=== PATIENT | male | born 1995 | race Caucasian/White ===

== ENCOUNTER 2017-03-12 10:26 | Emergency (ER) | payer BC, OTHER ==
[2017-03-12 10:57] VITALS: BP 131/69
--- NOTE | 2017-03-12 11:13 | UC ---
Respiratory Complaint HPI - HPI Summary HPI Summary: cough x 1 day + nasal congestion, sore throat , fever, chills body aches - History of Current Complaint Chief Complaint: UCRespiratory Stated Complaint: BLACKBURN/COUGH Time Seen by Provider: 03/12/17 11:08 Hx Obtained From: Patient Onset/Duration: Gradual Onset, Lasting Days - 1, Still Present Severity Initially: Moderate Severity Currently: Moderate Character: Cough: Nonproductive Aggravating Factors: Exertion Alleviating Factors: Nothing Associated Signs And Symptoms: Positive: Fever, Chills, URI, Nasal Congestion. Negative: Dyspnea, Pleuritic Chest Pain, Wheezing, Hemoptysis, Dizziness, Calf Pain, Calf Swelling, Edema - Allergies/Home Medications Allergies/Adverse Reactions: Allergies Allergy/AdvReac Type Severity Reaction Status Date / Time Ibuprofen [From Motrin] AdvReac Bleeding Verified 03/12/17 10:51 Home Medications: Home Medications Ibuprofen TAB* [Advil TAB*] 600 mg PO Q6H PRN 03/12/17 [History Confirmed ] PMH/Surg Hx/FS Hx/Imm Hx Previously Healthy: Yes - Surgical History Surgical History: Yes Surgery Procedure, Year, and Place: eye socket - Family History Known Family History: Negative: Diabetes - Social History Alcohol Use: None Substance Use Type: None Smoking Status (MU): Never Smoked Tobacco - Immunization History Most Recent Influenza Vaccination: not this season Review of Systems Constitutional: Fever, Chills, Fatigue Skin: Negative Eyes: Negative ENT: Sore Throat, Nasal Discharge Respiratory: Cough Cardiovascular: Negative Gastrointestinal: Negative Is Patient Immunocompromised?: No All Other Systems Reviewed And Are Negative: Yes Physical Exam Triage Information Reviewed: Yes Appearance: Well-Appearing, No Pain Distress, Well-Nourished Vital Signs: Initial Vital Signs Temp 100.5 F 03/12/17 10:53 Pulse 90 03/12/17 10:53 Resp 20 03/12/17 10:53 BP 131/69 03/12/17 10:53 Pulse Ox 98 03/12/17 10:53 Eye Exam: Normal Eyes: Positive: Conjunctiva Clear ENT: Positive: Normal ENT inspection, Hearing grossly normal, Pharyngeal erythema, Nasal congestion, Nasal drainage, TMs normal, TM bulging Neck: Positive: Supple, Nontender, No Lymphadenopathy Respiratory: Positive: Chest non-tender, Lungs clear, Normal breath sounds, No respiratory distress Cardiovascular: Positive: RRR, No Murmur, Pulses Normal Skin Exam: Normal UC Diagnostic Evaluation - Laboratory O2 Sat by Pulse Oximetry: 98 Respiratory Course/Dx - Differential Dx/Diagnosis Provider Diagnoses: influenza Discharge - Discharge Plan Condition: Stable Disposition: HOME Prescriptions: Oseltamivir CAP* [Tamiflu CAP*] 75 mg PO BID #10 cap Patient Education Materials: Influenza (DC) Referrals: No Primary Care Phys,NOPCP [Primary Care Provider] - If Needed
== END 2017-03-12 11:33 | disposition home or self-care (01) ==
LOC: UCCORT 10:26
DX: J11.1 Influenza due to unidentified influenza virus with other respiratory manifestations (principal)
CPT/HCPCS: 87502; 99202; G0463

== ENCOUNTER 2018-08-25 17:30 | Emergency (ER) | payer BC ==
[2018-08-25 18:53] VITALS: BP 153/80
[2018-08-25] MEDS ORDERED: Mupirocin 2% OINT* TUBE TOPICAL ONE (19:02)
--- NOTE | 2018-08-25 19:08 | UC ---
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 The laceration occurred through his pants and underwear. He's been cleaning it with alcohol and apply Neosporin. Where he works he has to keep it covered and at least once he's torn off the scab by accident. Now he is noticing it getting more red. Minimal drainage. No fevers or chills feels well otherwise. - History of Current Complaint Chief Complaint: UCSkin Time Seen by Provider: 08/25/18 18:55 Stated Complaint: RIGHT THIGH LAC Pain Intensity: 0 - Allergy/Home Medications Allergies/Adverse Reactions: Allergies Allergy/AdvReac Type Severity Reaction Status Date / Time ibuprofen Allergy Bleeding Verified 08/25/18 18:54 PMH/Surg Hx/FS Hx/Imm Hx Previously Healthy: Yes - Surgical History Surgical History: Yes Surgery Procedure, Year, and Place: eye socket - Family History Known Family History: Negative: Diabetes - Social History Alcohol Use: Weekly Substance Use Type: None Smoking Status (MU): Never Smoked Tobacco - Immunization History Most Recent Influenza Vaccination: not this season Review of Systems All Other Systems Reviewed And Are Negative: Yes Constitutional: Positive: Negative Skin: Positive: Other - SEE HPI Eyes: Positive: Negative ENT: Positive: Negative Respiratory: Positive: Negative Cardiovascular: Positive: Negative Gastrointestinal: Positive: Negative Motor: Positive: Negative Neurovascular: Positive: Negative Musculoskeletal: Positive: Negative Neurological: Positive: Negative Psychological: Positive: Negative Is Patient Immunocompromised?: No Physical Exam Triage Information Reviewed: Yes Appearance: Well-Appearing, No Pain Distress, Well-Nourished Vital Signs: Initial Vital Signs Temp 98.2 F 08/25/18 18:46 Pulse 91 08/25/18 18:46 Resp 18 08/25/18 18:46 BP 153/80 08/25/18 18:46 Pulse Ox 97 08/25/18 18:46 Vital Signs Reviewed: Yes Eye Exam: Normal Eyes: Positive: Conjunctiva Clear Neck: Positive: Supple Respiratory: Positive: No respiratory distress Musculoskeletal: Positive: Strength Intact, ROM Intact Neurological Exam: Normal Neurological: Positive: Alert, Muscle Tone Normal Psychological Exam: Normal Psychological: Positive: Age Appropriate Behavior Skin: Positive: Other - Right upper anterior thigh there is a 10 cm long by 3 cm wide area of abrasion with superficial lacerations. There is surrounding erythema and it's warm to touch there is no drainage. Course/Dx - Course Course Of Treatment: In clinic the wound was cleaned and mupirocin and nonstick dressing was applied. Plan will be to use the mupirocin stop using the alcohol and neomycin. Also prescription for Keflex 500 mg by mouth 4 times a day. Patient reports his tetanus is up-to-date within the last 3 years. If the patient worsens he is to get reevaluated. - Diagnoses Provider Diagnosis: Laceration of thigh, right, Cellulitis of right thigh Discharge - Sign-Out/Discharge Documenting (check all that apply): Patient Departure All imaging exams completed and their final reports reviewed: No Studies - Discharge Plan Condition: Stable Disposition: HOME Prescriptions: Cephalexin CAP* [Keflex CAP*] 500 mg PO QID #40 cap Mupirocin 1 applic TOPICAL BID #22 gm Patient Education Materials: Cellulitis (ED), Laceration Without Closure (ED) Referrals: [facility] [Outside] Additional Instructions: FOLLOW UP WITH YOUR DOCTOR IF NOT COMPLETELY IMPROVED. GET REEVALUATED SOONER IF WORSE; SPREAD OF INFECTION, FEVER, YOU FEEL ILL OR ANY QUESTIONS OR CONCERNS. - Billing Disposition and Condition Condition: STABLE Disposition: Home
== END 2018-08-25 19:22 | disposition home or self-care (01) ==
LOC: UCCORT 17:30
DX: S71.111A Laceration without foreign body, right thigh, initial encounter (principal); L03.115 Cellulitis of right lower limb; W31.89XA Contact with other specified machinery, initial encounter; Y92.9 Unspecified place or not applicable
CPT/HCPCS: 99213; G0463